=== PATIENT | male | born 1985 | race Caucasian/White ===

== ENCOUNTER 2023-10-27 10:37 | Emergency (ER) | payer SELFPAY ==
[2023-10-27 10:51] VITALS: TEMP 98.4
[2023-10-27] MEDS ORDERED: IBUPROFEN 600 MG TABLET (FP) PO ONE (12:20)
[2023-10-27] MEDS: IBUPROFEN 600 MG TABLET (FP) PO ONE (12:29)
[2023-10-27 12:51] LABS: BASO % 0.3 % (0-2.0); EOS % 0.4 % (0-4.5); HEMATOCRIT 42.6 % (35.4-49); HEMOGLOBIN 14.6 GM/dL (11.7-16.9); LYMPH % 16.4 % (8-40); MCHC 34.4 g/dl (32.0-35.9); MEAN CELL VOLUME 87.1 fl (80-96); MEAN PLT VOLUME 8.8 fl (7.5-11.1); NEUT % 76.9 % (42.8-82.8); PLATELET COUNT 304 10^3/uL (134-434); RBC 4.89 M/mm3 (4.00-5.60); RDW 13.4 % (11.9-15.9); WHITE BLOOD COUNT 5.7 K/mm3 (4.0-10.0)
[2023-10-27 12:55] LABS: INR 1.13 (0.83-1.09); PROTHROMBIN TIME (PATIENT) 13.1 SEC (9.7-13.0)
[2023-10-27 12:58] LABS: ACTIVATED PTT 33.1 SECONDS (25.2-36.5)
[2023-10-27 13:06] LABS: POTASSIUM 4.5 mmol/L (3.5-5.1)
[2023-10-27 13:08] LABS: BLOOD UREA NITROGEN 12.4 mg/dL (7-18)
[2023-10-27 13:09] LABS: ALBUMIN 4.2 g/dl (3.4-5.0)
[2023-10-27 13:12] LABS: CREATININE 0.9 mg/dL (0.55-1.3)
[2023-10-27 13:13] LABS: BILIRUBIN,TOTAL 0.7 mg/dL (0.2-1); TOT PROT 7.2 g/dl (6.4-8.2)
[2023-10-27 14:49] VITALS: BP 119/63; PULSE 71; RESP 16
== END 2023-10-27 14:49 | disposition home or self-care (01) ==
LOC: JER 10:37
DX: R07.89 Other chest pain (principal)
CPT/HCPCS: 36415; 71046-TC-FY; 80053; 84484; 85025; 85610; 85730; 93005; 93010; 99285-25